=== PATIENT | female | born 1980 | race Hispanic/Latino ===

== ENCOUNTER 2016-08-06 09:51 | Outpatient (CLI) | payer BC ==
--- NOTE | 2016-08-06 11:12 | Mammography Report ---
Bilateral digital screening mammogram with tomosynthesis. CAD was used. Comparison study is dated March 26, 2015. Findings: There is a new focal rounded density in the right breast at the 12:00 position approximately 5.6 cm from the nipple. This is confirmed on tomosyntheses. There is no architectural distortion and no suspicious calcifications are seen. The fibroglandular tissue is heterogeneous. The left breast is unremarkable. Impression: Right nodular asymmetry at 12:00 position. BI-RADS code: 0. Recommendation: Targeted ultrasound.
--- NOTE | 2016-08-06 13:58 | Ultrasound Report ---
Targeted right breast ultrasound. History: Recall for right breast mass. Findings: At the 12:00 position, there is a 1.2 x 0.6 x 1.1 cm cystic mass which corresponds in size and location to the mammographic lesion. There is no acoustic shadowing. The cyst is sharply circumscribed. No solid lesions or other significant findings are seen. Impression: Right breast cyst at the 12:00 position corresponding to the mammographic density. BI-RADS code: 2. Recommendation: Routine screening schedule, ACS guidelines.
== END 2016-08-06 09:52 | disposition home or self-care (01) ==
LOC: MAMMO 09:51
PROVIDERS: ATTEND Obstetrics & Gynecology
DX: Z12.31 Encounter for screening mammogram for malignant neoplasm of breast (principal); N60.01 Solitary cyst of right breast; N63 Unspecified lump in breast
CPT/HCPCS: 76642; G0202; 77067

== ENCOUNTER 2017-09-15 10:43 | Outpatient (CLI) | payer BC ==
--- NOTE | 2017-09-16 11:41 | Ultrasound Report ---
BILATERAL DIGITAL SCREENING MAMMOGRAM with CAD and DIGITAL BREAST TOMOSYNTHESIS (DBT) and BILATERAL BREAST ULTRASOUND : 09/15/17 CLINICAL: Routine screening.The screening mammogram was reviewed and bilateral breast ultrasound was ordered based on the findings of this screening mammogram. COMPARISON:08/06/16 FINDINGS: The breasts are heterogeneously dense, which may obscure small masses. Bilateral circumscribed asymmetries are identified on the tomosynthesis views. No mass, architectural distortion or suspicious calcifications. Ultrasound of the right breast (including all four quadrants and the retroareolar area) was performed and demonstrated a benign anechoic cyst at 12 o'clock 3 cm from the nipple measuring 1.4 x 0.8 x 1.2 cm. It correlates with a previously described cyst and is slightly larger. A complex cyst versus solid nodule at 10 o'clock 4 cm from the nipple measures about 4 x 5 mm and complex cyst versus solid nodule at at 10:30 o'clock 5 cm from the nipple measures 3 x 3 x 4 mm. Ultrasound of the left breast (including all four quadrants and the retroareolar area) was performed. A benign cyst at 6 o'clock retroareolar measures 8 x 5 x 6 mm. A complex cyst versus solid nodule at 10 o'clock 3 cm from the nipple measures 5 x 4 x 4 mm. A complex cyst versus solid nodule at 1 o'clock 3 cm from the nipple measures 4 x 2 x 4 mm and a complex cyst versus solid nodule at 1 o'clock 3 cm from the nipple measures 3 x 3 x 3 mm. IMPRESSION: Bilateral benign cysts and bilateral probably benign complex cysts versus solid nodules. RECOMMENDATION: A followup bilateral breast ultrasound in three months at [facility] to reevaluate bilateral complex cysts versus solid nodules. BI-RADS CATEGORY: 3--Probably Benign COMMENT: Patient follow-up letters are generated by our [employer] application.
== END 2017-09-15 10:44 | disposition home or self-care (01) ==
LOC: MAMMO 10:43
PROVIDERS: ATTEND Internal Medicine
DX: Z12.31 Encounter for screening mammogram for malignant neoplasm of breast (principal)
CPT/HCPCS: 77063; 77067

== ENCOUNTER 2018-01-14 10:07 | Outpatient (CLI) | payer BC ==
--- NOTE | 2018-01-14 14:52 | Ultrasound Report ---
BILATERAL BREAST ULTRASOUND: 01/14/18 10:07:00 CLINICAL: Followup complex cyst versus solid masses. COMPARISON: 09/15/17 FINDINGS: Targeted ultrasound of the right breast was performed and demonstrated three benign anechoic cysts and no solid masses. A cyst at 10 o'clock 4 cm from the nipple measures 9 x 8 x 6 mm, a cyst at 10:30 o'clock 5 cm from the nipple measures 5 x 3 x 2 mm and a cyst at 12 o'clock 3 cm from the nipple measures 5 x 3 x 3 mm. The cyst at 10 o'clock is slightly larger compared to the prior exam and the cyst at 12 o'clock is slightly smaller. The cyst at 10:30 o'clock is unchanged. Targeted ultrasound of the left breast demonstrated a benign anechoic cyst at 1 o'clock 3 cm from the nipple measuring 3 x 3 x 2 mm and a second cyst at 1 o'clock 3 cm from the nipple measuring 6 x 4 x 4 mm. Both of these are unchanged in size but are more anechoic than on the prior exam. A retroareolar cyst at 6 o'clock measures 1.1 x 0.6 x 0.8 cm. It is slightly larger but is completely anechoic. A slightly irregular relatively anechoic lesion at 10 o'clock 3 cm from the nipple measures 4 x 3 x 3 mm. It demonstrates questionable shadowing. IMPRESSION: All of the previous described cysts with internal echoes have become anechoic. Only the anechoic lesion at 10 o'clock 3 cm from the nipple warrants followup because of its lack of posterior enhancement. BI-RADS 3 - - Probably Benign RECOMMENDATION: An additional short-term followup ultrasound of the left breast in three months to reevaluate the probable left cyst at 10 o'clock 3 cm from the nipple. Recommend routine screening of the right breast.
== END 2018-01-14 10:08 | disposition home or self-care (01) ==
LOC: SPVWC 10:07
PROVIDERS: ATTEND Internal Medicine
DX: N60.02 Solitary cyst of left breast (principal); N60.01 Solitary cyst of right breast; Z90.49 Acquired absence of other specified parts of digestive tract; Z90.710 Acquired absence of both cervix and uterus; Z90.721 Acquired absence of ovaries, unilateral

== ENCOUNTER 2018-06-21 12:41 | Emergency (ER) | payer BC ==
--- NOTE | 2018-06-21 12:53 | Emergency Department Report ---
ED Chest Pain HPI - General Stated Complaint: CHEST PAIN Time Seen by Provider: 06/21/18 12:47 - History of Present Illness Initial Comments: 38-year-old female, who is a OR Tech here at [employer], presents to the emergency department from at work upstairs with complaint of some right-sided chest pain/pressure and some diaphoresis that started just prior to arrival. The patient was going into an operating room to assist when she mentioned that her chest felt "weird." She says that some of the anesthesiologists evaluated her and felt that she might have an irregular heart rate based on feeling her pulse. The patient had a blood pressure of systolic 120-130 which she says is high for her pressure usually runs at about a systolic of 90. I was called by the shank stitcher on-call, Dr. Milan, gave a heads up that this patient was coming down to be checked out and suggested some basic cardiac blood work be done. The patient does not have any past medical history. She does not use tobacco or any illicit drug use. She did not take anything for her symptoms prior to arrival in the emergency department. - Related Data Home Medications Medication Instructions Recorded Confirmed Last Taken No Known Home Medications [No 01/11/14 01/11/14 Unknown Reported Home Medications] Allergies Allergy/AdvReac Type Severity Reaction Status Date / Time amoxicillin trihydrate Allergy Rash Verified 12/31/13 10:35 [From Augmentin] clarithromycin [From Biaxin] Allergy Rash Verified 12/31/13 10:39 latex Allergy Rash Verified 12/31/13 10:35 potassium clavulanate Allergy Rash Verified 12/31/13 10:35 [From Augmentin] FLU VACINE Allergy Rash Uncoded 09/15/17 10:44 Heart Score - HEART Score History: Slightly suspicious EKG: Normal Age: < 45 Risk factors: No known risk factors Troponin: < normal limit HEART Score: 0 - Critical Actions Critical Actions: 0-3 pts:0.9-1.7%risk of adverse cardiac event.Candidate for discharge ED Review of Systems ROS: Stated complaint: CHEST PAIN Other details as noted in HPI Comment: All other systems reviewed and negative Constitutional: diaphoresis. denies: fever Eyes: denies: eye pain, vision change ENT: denies: ear pain, throat pain Respiratory: denies: cough, shortness of breath Cardiovascular: chest pain. denies: palpitations Gastrointestinal: denies: abdominal pain, vomiting Genitourinary: denies: urgency, dysuria Musculoskeletal: denies: back pain, arthralgia Skin: denies: rash, lesions Neurological: denies: headache, weakness ED Past Medical Hx - Past Medical History Hx Asthma: No Hx COPD: No - Surgical History Hx Appendectomy: Yes Additional Surgical History: hysterectomy - Social History Smoking Status: Never Smoker - Medications Home Medications: Home Medications Medication Instructions Recorded Confirmed Last Taken Type No Known Home Medications [No 01/11/14 01/11/14 Unknown History Reported Home Medications] ED Physical Exam - Other Other exam information: GENERAL: The patient is well-developed well-nourished. HEENT: Normocephalic. Atraumatic. Patient has moist mucous membranes. EYES: Extraocular motions are intact. NECK: Supple. Trachea is midline. CHEST/LUNGS: Clear to auscultation. There is no respiratory distress noted. HEART/CARDIOVASCULAR: Regular. There is no tachycardia. There is no obvious murmur. ABDOMEN: Abdomen is soft, nontender. Patient has normal bowel sounds. There is no abdominal distention. SKIN: Skin is warm and dry. NEURO: The patient is awake, alert, and oriented. The patient is cooperative. The patient has no focal neurologic deficits. The patient has normal speech. MUSCULOSKELETAL: There is no tenderness or deformity. There is no evidence of acute injury. ED Course Vital Signs 06/21/18 06/21/18 06/21/18 12:42 12:45 13:00 Temperature Pulse Rate 91 H 86 Respiratory 14 14 Rate Blood Pressure 116/70 O2 Sat by Pulse 99 100 99 Oximetry 06/21/18 06/21/18 06/21/18 13:03 13:15 13:30 Temperature 98.8 F Pulse Rate 80 83 77 Respiratory 11 L 10 L 17 Rate Blood Pressure 116/70 108/42 108/48 O2 Sat by Pulse 100 100 99 Oximetry 06/21/18 06/21/18 06/21/18 13:45 14:00 14:15 Temperature Pulse Rate 78 79 80 Respiratory 11 L 13 12 Rate Blood Pressure 108/74 110/67 106/55 O2 Sat by Pulse 99 100 99 Oximetry 06/21/18 06/21/18 06/21/18 14:30 14:45 15:00 Temperature Pulse Rate 81 82 83 Respiratory 15 11 L 10 L Rate Blood Pressure 122/47 118/70 118/70 O2 Sat by Pulse 98 100 98 Oximetry 06/21/18 15:15 Temperature Pulse Rate 79 Respiratory 14 Rate Blood Pressure 119/65 O2 Sat by Pulse 97 Oximetry - Consultations Consultation #1: The shank stitcher chief compressor station engineer, Dr Milan, had already called me to let me know that this patient was coming to see us in the emergency department from the operating room. I later spoke with him regarding the patient's negative workup thus far and we discussed the EKG and chest x-ray results. Dr Milan agrees that the patient appears safe for discharge home at this time and they will see her in the office for further evaluation and possible stress test and/or echocardiogram. 06/21/18 16:44 CASA score - Casa Score Age > 65: (0) No Aspirin use within the Past 7 Days: (0) No 3 or more CAD Risk Factors: (0) No 2 or more Angina events in past 24 hrs: (0) No Known CAD with more than 50% Stenosis: (0) No Elevated Cardiac Markers: (0) No ST Deviation Greater than 0.5mm: (0) No CASA Score: 0 ED Medical Decision Making - Lab Data Result diagrams: 06/21/18 12:59 06/21/18 12:59 - EKG Data -: EKG Interpreted by Me EKG shows normal: sinus rhythm, axis (left axis deviation), intervals, QRS complexes, ST-T waves Rate: normal - EKG Data When compared to previous EKG there are: previous EKG unavailable Interpretation: normal EKG - Radiology Data Radiology results: image reviewed interpreted by me: Chest x-ray does not show any pneumothorax, pleural effusion, pneumonia or obvious focal consolidation. - Medical Decision Making This patient presented to the emergency department from upstairs in the [employer] room, where she works, with some right-sided chest pain. The patient has no risk factors for coronary artery disease. EKG did not show any morphology consistent with any ST elevation NE, ischemia or dysrhythmia. Heart and lungs sounds are normal to auscultation. Chest x-ray did not show any pneumonia, focal consolidation, pneumothorax, pleural effusions, or any other acute process. Her labs have been unremarkable including negative troponins 2. I've been in contact with the shank stitcher who agrees that the patient appears safe for discharge home and they will see the patient in the outpatient setting for further workup. However the patient will return to the emergency department wi th any return of her chest pain, or with any acute distress. Vital signs stable throughout her ED course. - Differential Diagnosis costochondritis, GERD, vasovagal, pneumonia, NE Critical Care Time: No Critical care attestation.: If time is entered above; I have spent that time in minutes in the direct care of this critically ill patient, excluding procedure time. ED Disposition Clinical Impression: Atypical chest pain Disposition: DC-01 TO HOME OR SELFCARE Is pt being admited?: No Condition: Stable Instructions: Chest Pain (ED) Additional Instructions: Please follow-up with your primary care physician. Please call the shank stitcher and make an appointment as soon as possible for an outpatient stress test or cardiac evaluation. Return to the emergency department immediately with any return of your chest pain or with any acute distress. Referrals: SHANNON MARQUEZ MD [Primary Care Provider] - 2-3 Days DAVONTE MILAN MD [Staff Physician] - 2-3 Days Time of Disposition: 16:43
--- NOTE | 2018-06-21 13:10 | XRay Report ---
AP CHEST: HISTORY: chest pain AP view of the chest demonstrates a normal mediastinal and cardiac contour with clear lungs and normal bony and soft tissue structures. IMPRESSION: Unremarkable AP chest.
[2018-06-21] MEDS ORDERED: BABY ASPIRIN PO ONE (13:13)
[2018-06-21 13:14] LABS: Basophils % (Auto) 0.8 % (0.0-1.8); Eosinophils % (Auto) 0.4 % (0.0-4.3); Hematocrit 41.6 % (30.3-42.9); Hemoglobin 14.2 gm/dl (10.1-14.3); Lymphocytes % (Auto) 35.2 % (13.4-35.0); Mean Corpuscular HGB Conc 34 % (30-34); Mean Corpuscular Volume 88 fl (79-97); Monocytes # (Auto) 0.5 K/mm3 (0.0-0.8); Monocytes % (Auto) 8.1 % (0.0-7.3); Platelet Count 264 K/mm3 (140-440); Red Blood Count 4.72 M/mm3 (3.65-5.03); Red Cell Distribution Width 13.1 % (13.2-15.2)
[2018-06-21 13:36] LABS: Alanine Aminotransferase 12 units/L (7-56); Albumin 4.4 g/dL (3.9-5); BUN/Creatinine Ratio 15; Blood Urea Nitrogen 12 mg/dL (7-17); Calcium 9.1 mg/dL (8.4-10.2); Hemolysis Index 12
[2018-06-21 15:21] VITALS: BP 119/65
== END 2018-06-21 17:04 | disposition home or self-care (01) ==
LOC: ED 12:41
DX: R07.89 Other chest pain (principal); Z90.710 Acquired absence of both cervix and uterus; Z88.1 Allergy status to other antibiotic agents; Z88.8 Allergy status to other drugs, medicaments and biological substances; Z88.7 Allergy status to serum and vaccine; Z91.040 Latex allergy status
CPT/HCPCS: 36415; 71045; 80053; 84484; 84703; 85025; 93005; 93010

== ENCOUNTER 2018-06-29 15:54 | Outpatient (CLI) | payer BC ==
--- NOTE | 2018-06-29 19:50 | XRay Report ---
FINAL REPORT EXAM: XR SPINE CERVICAL 2-3V HISTORY: RADICULOPATHY TECHNIQUE: 3 views of the cervical spine PRIORS: None. FINDINGS: The vertebral bodies are normal in height. Vertebral alignment is normal. The disc spaces are well pr eserved. There is no evidence of fracture or subluxation. The soft tissues are unremarkable. IMPRESSION: Normal C-spine series.
== END 2018-06-29 15:55 | disposition home or self-care (01) ==
LOC: XRAY 15:54
PROVIDERS: ATTEND Internal Medicine Cardiovascular Disease
DX: M54.13 Radiculopathy, cervicothoracic region (principal); Z90.49 Acquired absence of other specified parts of digestive tract; Z90.710 Acquired absence of both cervix and uterus; Z90.721 Acquired absence of ovaries, unilateral
CPT/HCPCS: 72040

== ENCOUNTER 2019-06-30 08:36 | Day surgery (SDC) | payer BC ==
[2019-06-30] MEDS ORDERED: NITROGLYCERIN 0.4 MG TAB SUBL SL ONE (10:13)
[2019-06-30] MEDS ORDERED: ATROPINE 0.1% (1 MG/10 ML) CARDIAC SYRINGE ONE (10:18)
[2019-06-30 10:22] LABS: Blood Urea Nitrogen 9 mg/dL (7-17)
[2019-06-30] MEDS ORDERED: ATROPINE 1 MG/ML VIAL IV ONE (10:30)
[2019-06-30] MEDS ORDERED: METOPROLOL TARTRATE 5 MG/5 ML INJ IV ONE (10:30)
[2019-06-30 11:09] LABS: BUN/Creatinine Ratio 11; Blood Urea Nitrogen 9 mg/dL (7-17); Calcium 9.3 mg/dL (8.4-10.2); Hemolysis Index 10
[2019-06-30 11:26] VITALS: BP 100/51
--- NOTE | 2019-06-30 13:06 | Cat Scan Report ---
LIMITED CTA CHEST Indication: Limited evaluation of the chest associated with cardiac CTA exam. Technique: Arterial phase technique utilized to evaluate the carotid arteries. Please refer to the of ficial cardiac CTA report for contrast details. All CT scans at this location are performed using CT dose reduction for ALARA by means of automated exposure control. Findings: No pathologic adenopathy. Visualized lungs are clear. There are degenerative changes in the spine with no acute osseous abnormality. Limited imaging through the upper abdomen shows nothing acute. Impression: No significant incidental finding. Signer Name: Brennen Carter Jr, MD Signed: 06/30/2019 1:01 PM Workstation Name: [id number]
--- NOTE | 2019-07-10 10:53 | CT Calcium Scoring Report ---
Coronary Calcium Score Date of service: 07/10/19 Procedure: High-resolution computed tomographic imaging of the chest was performed on06/30/19 with particular attention paid to the coronary arteries. Images from the examination were analyzed for the presence and extent of coronary artery calcification, using coronary calcium quantification software. The patient tolerated the procedure well and there were no complications. The results of the coronary calcification analysis are provided below. The patient scores are compared with published data related to scores for people of a similar age and the same gender. - Findings Total Agatson Score: 0 Findings: cardiac cta Procedure: the patient was brought to the ct laboratory at [facility] in stable condition after a [address] angiography was performed on the 64 slice scanner using the standard protocol. heart was regulated by beta blockade. sublingual ngt was administered prior to imaging. a coronary calcium score was performed by the agatston method. a separate radiology assessment of the non cardaic structures in the field of view will be provided. 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 there were no procedural complications
== END 2019-06-30 08:37 | disposition home or self-care (01) ==
LOC: CATHLABREC 08:36 → EDSTATUS 09:45
PROVIDERS: ATTEND Internal Medicine
DX: R07.9 Chest pain, unspecified (principal)
CPT/HCPCS: 36415; 75574; 80048; 82565; 84520; J0461; Q9967

== ENCOUNTER 2020-03-06 14:27 | Outpatient (CLI) | payer BC, OTHER ==
--- NOTE | 2020-03-06 15:33 | Magnetic Resonance Report ---
MRI ABDOMEN WITHOUT AND WITH CONTRAST INDICATION / CLINICAL INFORMATION: ABD PAIN. TECHNIQUE: Multiplanar, multisequence series were obtained through the abdomen. Postcontrast dynamic imaging fol lowing 17 cc of IV gadolinium. Thin slab and radial MRCP images. COMPARISON: No relevant comparison at this facility FINDINGS: LIVER: No significant abnormality. GALLBLADDER: No significant abnormality. BILE DUCTS: No significant abnormality. The common bile duct measures 3 mm on the MRCP images. No mily ling defect or stricture. PANCREAS: No significant abnormality. Normal pancreatic duct on MRCP. SPLEEN: No significant abnormality. ADRENALS: No significant abnormality. RIGHT KIDNEY AND URETER: No significant abnormality. LEFT KIDNEY AND URETER: No significant abnormality. STOMACH AND VISUALIZED BOWEL: No significant abnormality. PERITONEUM: No free fluid. No free air. No fluid collection. LYMPH NODES: No adenopathy. AORTA and ARTERIES: No significant abnormality. IVC and VEINS: No significant abnormality. ADDITIONAL FINDINGS: None. SKELETAL SYSTEM: No significant abnormality. IMPRESSION: Normal MR abdomen with and without contrast. Normal MRCP. Signer Name: Brennen Carter Jr, MD Signed: 03/06/2020 3:28 PM Workstation Name: [id number]
== END 2020-03-06 14:28 | disposition home or self-care (01) ==
LOC: MRI 14:27
PROVIDERS: ATTEND Internal Medicine
DX: R10.9 Unspecified abdominal pain (principal)
CPT/HCPCS: 74183; A9577

== ENCOUNTER 2020-06-25 12:37 | Outpatient (CLI) | payer BC ==
--- NOTE | 2020-06-26 08:01 | Mammography Report ---
BILATERAL DIGITAL SCREENING MAMMOGRAM WITH CAD HISTORY: Screening mammogram, patient reports (on the screening mammogram questionnaire) a right barbara st lump which she states has increased in size. TECHNIQUE: Routine digital mammographic imaging performed. This examination was interpreted with armando johnson benefit of Computer-aided Detection analysis. COMPARISON: 01/14/2018, 09/15/2017, 08/06/2016. FINDINGS: Breast Density: heterogeneously dense breast parenchymal pattern which somewhat lessens the sensitivi ty of the evaluation. Digital CC and MLO views demonstrate increased size of a right upper outer breast partially obscured round lesion, possibly a cyst. This may correspond with the reported palpable finding. A targeted ul trasound is recommended for further evaluation. A partially obscured oval lesion in the left upper in ner breast is also noted, likely corresponding with a suspected probably benign 10:00 cyst noted prev iously. IMPRESSION: Increased size of right upper outer breast partially obscured round lesion. A targeted ultrasound is recommended for further evaluation. Additionally, the patient reports increasing size of a right barbara st palpable finding for which a targeted ultrasound is recommended. Patient is due for follow-up evaluation of a previously noted left breast cyst lesion at the 10:00 po sition. A targeted left breast ultrasound is recommended. BIRADS 0-Incomplete: Needs additional imaging evaluation NOTE: WE WILL RECALL THE PATIENT FOR THIS ADDITIONAL EVALUATION. FURTHER INFORMATION: According to the [employer], yearly mammograms are recommend ed starting at age 40 and continuing as long as a woman is in good health. Clinical Breast Exams shou ld be part of a periodic health exam-about every 3 years for women in their 20s and 30s and every yea r for women 40 and over. Breast self exam is an option for women starting in their 20s. Any breast ch marilu noted on a breast self exam should be reported promptly to the patient's healthcare provider. Br east MRI is recommended for women with an approximately 20-25% or greater lifetime risk of breast can cer, including women with a strong family history of breast or ovarian cancer and women who have been treated for Hodgkin's disease. A negative Mammography report should not discourage follow up or biopsy of a clinically significant f inding and/or abnormality. Dense breast tissue may obscure small neoplasms. The patient will be entered into a reminder system with a target due date for the next screening mamm ogram. A Signer Name: Shlomo Frazier MD Signed: 06/26/2020 7:56 AM Workstation Name: [id number]
== END 2020-06-25 12:38 | disposition home or self-care (01) ==
LOC: MAMMO 12:37
PROVIDERS: ATTEND Internal Medicine
DX: Z12.31 Encounter for screening mammogram for malignant neoplasm of breast (principal)
CPT/HCPCS: 77067

== ENCOUNTER 2020-06-27 13:10 | Outpatient (CLI) | payer BC ==
[2020-06-27 13:37] LABS: Basophils # (Auto) 0.1 K/mm3 (0.0-0.1); Basophils % (Auto) 0.7 % (0.0-1.8); Eosinophils % (Auto) 0.2 % (0.0-4.3); Hematocrit 40.1 % (30.3-42.9); Hemoglobin 13.7 gm/dl (10.1-14.3); Lymphocytes # (Auto) 2.2 K/mm3 (1.2-5.4); Lymphocytes % (Auto) 26.4 % (13.4-35.0); Mean Corpuscular HGB Conc 34 % (30-34); Mean Corpuscular Volume 89 fl (79-97); Monocytes # (Auto) 0.7 K/mm3 (0.0-0.8); Monocytes % (Auto) 8.6 % (0.0-7.3); Platelet Count 303 K/mm3 (140-440); Red Blood Count 4.51 M/mm3 (3.65-5.03); Red Cell Distribution Width 13.3 % (13.2-15.2)
[2020-06-27 15:14] LABS: Alanine Aminotransferase 20 units/L (7-56); Albumin 4.6 g/dL (3.9-5); Blood Urea Nitrogen 10 mg/dL (7-17); Calcium 9.3 mg/dL (8.4-10.2); Chol/HDL Ratio 2.82 %; HDL Cholesterol 52 mg/dL (40-59); Hemolysis Index 8; LDL Cholesterol,Direct 96 mg/dL (50-130)
[2020-06-27 15:27] LABS: BUN/Creatinine Ratio 14
--- NOTE | 2020-06-28 12:51 | Ultrasound Report ---
ULTRASOUND BREAST BILATERAL LIMITED, 06/27/2020 CLINICAL INFORMATION / INDICATION: Recent abnormal right screening mammogram as well as right palpabl e lump. Patient was also due for follow-up left breast ultrasound.. TECHNIQUE: Targeted ultrasound evaluation was performed of the area of interest. COMPARISON: Recent screening mammogram 06/25/2020 and prior breast ultrasound 09/15/2017 FINDINGS: Right breast: There is a large simple cyst in the right breast at 9-10:00, 6 cm from the nipple measu ring 2.5 x 1.8 cm. This accounts for the abnormal finding on recent right mammogram aswell as the pal pable lump described by the patient. There is an additional simple cyst in the right breast at 9:00, 4 cm from the nipple, measuring 7 mm. Left breast: There are a few small scattered cysts throughout the superior and upper outer quadrant o f the left breast. No cysts greater than 1 cm. No solid masses identified. No solid masses or complex cyst identified at this time. IMPRESSION: No sonographic evidence of malignancy. Bilateral cysts as described above. Follow up recommendation: Routine yearly BI-RADS Category 2: Benign. A normal or "negative" report should not preclude biopsy or follow-up of a clinically suspicious find ing. Signer Name: Clair Ayala MD Signed: 06/28/2020 12:47 PM Workstation Name: [email or web address]
== END 2020-06-27 13:11 | disposition home or self-care (01) ==
LOC: LAB 13:10
PROVIDERS: ATTEND Nurse Practitioner Family
DX: Z00.00 Encounter for general adult medical examination without abnormal findings (principal); Z01.419 Encounter for gynecological examination (general) (routine) without abnormal findings; N60.01 Solitary cyst of right breast; E55.9 Vitamin D deficiency, unspecified; R92.8 Other abnormal and inconclusive findings on diagnostic imaging of breast
CPT/HCPCS: 36415; 80053; 80061; 82306; 84443; 85025

== ENCOUNTER 2021-02-07 11:15 | Outpatient (CLI) | payer BC | END 2021-02-07 11:16 | disposition home or self-care (01) | LOC: LAB 11:15 | PROVIDERS: ATTEND Nurse Practitioner Family | DX: R79.89 Other specified abnormal findings of blood chemistry (principal) | CPT/HCPCS: 36415; 84439; 84443; 84480 ==

== ENCOUNTER 2021-07-25 12:59 | Outpatient (CLI) | payer BC ==
--- NOTE | 2021-07-25 13:52 | Cat Scan Report ---
CTA CHEST WITH CONTRAST INDICATION : PLEURITIC CHEST PAIN OMNI 350 100 ML. Left chest pain. TECHNIQUE: Axial imaging performed through the chest, with contrast bolus timing set to maximize opa cification of the pulmonary arteries. Sagittal and coronal reformatted images. 3-plane MIP reformatte d images were obtained. All CT scans at this location are performed using CT dose reduction for ALAR A by means of automated exposure control. Omnipaque 350 100 mL of intravenous contrast administered. COMPARISON: None FINDINGS: Bolus: Contrast bolus timing is adequate. PTE: No filling defect is present to suggest PTE. Mediastinum: Heart and great vessels appear normal. No significant coronary artery calcifications. T he thyroid gland, tracheobronchial tree and esophagus are unremarkable. No pathologic mediastinal robi nopathy. Lungs: Minimal subpleural atelectatic changes are identified in the posterior right lower lobe. Othe rwise, the lungs are clear with no evidence for parenchymal lung disease. No pleural effusion or pneu mothorax. Bones: Minimal degenerative changes in the thoracic spine. No fracture or suspicious bony lesion. Upper abdomen: Limited imaging of the upper abdomen shows nothing acute. IMPRESSION: Negative for PTE. Clear lungs. Signer Name: Brennen Carter Jr, MD Signed: 07/25/2021 1:48 PM Workstation Name: [id number]
== END 2021-07-25 13:00 | disposition home or self-care (01) ==
LOC: CT 12:59
PROVIDERS: ATTEND Internal Medicine Cardiovascular Disease
DX: J98.11 Atelectasis (principal); M47.814 Spondylosis without myelopathy or radiculopathy, thoracic region
CPT/HCPCS: 71275; Q9967

== ENCOUNTER 2021-07-29 07:12 | Outpatient (CLI) | payer BC ==
--- NOTE | 2021-07-29 10:06 | Treadmill Report ---
DATE OF SERVICE: 07/29/2021 EXERCISE STRESS REPORT REASON FOR TEST: Chest pain. DESCRIPTION OF PROCEDURE: The patient exercised for 11 minutes of a Alex protocol, reaching stage 4 and achieving 12 METs. Peak heart rate was 176 beats per minute. Peak blood pressure was 140 systolic. There was no chest pain. Test was stopped for fatigue. Baseline ECG was sinus rhythm. With exercise, there were no ST changes of ischemia. No significant dysrhythmias were noted. CONCLUSION: 1. Very good exercise capacity. 2. No chest pain with exercise. 3. No ST changes of ischemia. 4. No significant dysrhythmias. 5. Normal exercise ECG test. TID: [id number] RECEIPT: [id number] [facility]
== END 2021-07-29 07:13 | disposition home or self-care (01) ==
LOC: ECHO 07:12
PROVIDERS: ATTEND Internal Medicine Cardiovascular Disease
DX: I08.8 Other rheumatic multiple valve diseases (principal)
CPT/HCPCS: 93017; C8929; 93306

== ENCOUNTER 2021-08-15 12:13 | Outpatient (CLI) | payer BC ==
[2021-08-15 12:57] LABS: Basophils # (Auto) 0.1 K/mm3 (0.0-0.1); Basophils % (Auto) 0.9 % (0.0-1.8); Eosinophils % (Auto) 0.4 % (0.0-4.3); Hematocrit 40.6 % (30.3-42.9); Hemoglobin 14.2 gm/dl (10.1-14.3); Lymphocytes # (Auto) 1.8 K/mm3 (1.2-5.4); Lymphocytes % (Auto) 27.8 % (13.4-35.0); Mean Corpuscular HGB Conc 35 % (30-34); Mean Corpuscular Volume 88 fl (79-97); Monocytes # (Auto) 0.7 K/mm3 (0.0-0.8); Monocytes % (Auto) 10.6 % (0.0-7.3); Platelet Count 304 K/mm3 (140-440); Red Cell Distribution Width 13.1 % (13.2-15.2)
[2021-08-15 13:04] LABS: Alanine Aminotransferase 21 units/L (7-56); Albumin 4.9 g/dL (3.9-5); Blood Urea Nitrogen 11 mg/dL (7-17); Calcium 9.6 mg/dL (8.4-10.2); Chol/HDL Ratio 3.15 %; HDL Cholesterol 57 mg/dL (40-59); Hemolysis Index 13; LDL Cholesterol,Direct 112 mg/dL (50-130)
[2021-08-15 13:07] LABS: BUN/Creatinine Ratio 16
--- NOTE | 2021-08-15 15:40 | Mammography Report ---
DEXA BONE DENSITY SCAN INDICATION / CLINICAL INFORMATION: Z78. 41 years Female COMPARISON: None available. LUMBAR SPINE, L1-L4: - Bone mineral density (BMD) = 1.228 g/cm2. - T-score = 1.6 - Change (%) since most recent prior (if available): None available. LEFT HIP, TOTAL : - Bone mineral density (BMD) = 1.135 g/cm2. - T-score = 1.6 - Change (%) since most recent prior (if available): None available. IMPRESSION: 1. WHO Classification: Normal bone density. Fracture Risk: Not Increased. 2. 10-Year Fracture Risk (FRAX) = Major Osteoporotic Not reported.% / Hip: Not reported.% FRAX generally not reported for patients with normal or osteoporotic BMD, in guu-lwnlvvb-xhfutzu shanda ents younger than age 50, or in patients undergoing pharmacotherapy BMD Reporting Guidelines (ISCD, 2015) BMD Reporting in Postmenopausal Women and in Men Age 50 and Older - T-scores are preferred. - The WHO densitometric classification is applicable. BMD Reporting in Females Prior to Menopause and in Males Younger Than Age 50 - Z-scores, not T-scores, are preferred. This is particularly important in children. - A Z-score of -2.0 or lower is defined as below the expected range for age, and a Z-score above -2.0 is within the expected range for age. - Osteoporosis cannot be diagnosed in men under age 50 on the basis of BMD alone. - The WHO diagnostic criteria may be applied to women in the menopausal transition. http://www.iscd.org/official-positions/0550-zzvs-gowbpcwn-positions-adult/ Signer Name: Bo Huynh MD Signed: 08/15/2021 3:35 PM Workstation Name: [id number]
--- NOTE | 2021-08-18 15:31 | Mammography Report ---
DIGITAL SCREENING MAMMOGRAM WITH CAD, 08/15/2021 CLINICAL INFORMATION / INDICATION: Routine screening TECHNIQUE: Digital bilateral 2D mammography was obtained in the craniocaudal and mediolateral obliqu e projections. This examination was interpreted with the benefit of Computer-Aided Detection analysis . COMPARISON: 06/25/2020 FINDINGS: Breast Density: The breasts are heterogeneously dense, which may obscure small masses. No dominant mass, suspicious calcifications, or architectural distortion in either breast. Bilateral benign-appearing changing nodularity is again seen. IMPRESSION: No mammographic evidence of malignancy. Follow up recommendation: Routine yearly BI-RADS Category 2: BENIGN. A "normal" or negative report should not discourage follow up or biopsy of a clinically significant f inding. A written summary of these findings will be mailed to the patient. The patient will be entered into a mammography reporting system which will generate a reminder letter for the patient's next appointmen t at the appropriate interval. The [employer] recommends yearly mammograms starting at age 40 and continuing as l sanjana as a woman is in good health. Breast MRI is recommended for women with an approximate 20-25% or greater lifetime risk of breast cancer, including women with a strong family history of breast or ova fabian cancer or who have been treated for Hodgkin's disease. Signer Name: Jarad Kyle MD Signed: 08/18/2021 3:27 PM Workstation Name: [id number]
== END 2021-08-15 12:14 | disposition home or self-care (01) ==
LOC: MAMMO 12:13
PROVIDERS: ATTEND Internal Medicine
DX: Z12.31 Encounter for screening mammogram for malignant neoplasm of breast (principal); Z00.00 Encounter for general adult medical examination without abnormal findings; Z78.0 Asymptomatic menopausal state
CPT/HCPCS: 36415; 77067; 77080; 80053; 80061; 82670; 83001; 84443; 85025

== ENCOUNTER 2021-10-07 07:32 | Day surgery (SDC) | payer BC ==
[2021-10-07] MEDS ORDERED: IBUPROFEN 800 MG TAB PO ONE (12:00)
[2021-10-07] MEDS ORDERED: IBUPROFEN 800 MG TAB ONE (12:55)
[2021-10-07] MEDS ORDERED: BUPIVACAINE/PF (0.5%) 5 MG/1 ML 30 ML VIAL INFILTRATI ONE ×2 (13:37→14:02)
[2021-10-07] MEDS ORDERED: LIDOCAINE (1%) 10 MG/1 ML VIAL 20 ML MDV ONE (13:37)
[2021-10-07] MEDS ORDERED: SODIUM CHLORIDE 0.9% IRR 1,500 ML BOTTLE IR ONE (14:00)
[2021-10-07] MEDS ORDERED: LIDOCAINE (1%) 10 MG/1 ML VIAL 20 ML MDV INFILTRATI ONE (14:03)
[2021-10-07 14:13] VITALS: BP 119/80
--- NOTE | 2021-10-07 14:37 | Procedure Note ---
Date of procedure: 10/07/21 Pre-op diagnosis: Soft tissue mass right upper abdominal wall Post-op diagnosis: same Procedure: Excision of soft tissue mass right upper abdominal wall Findings: Patient identified in preoperative area and operative site palpated and marked. The patient was taken back to the minor procedure room and positioned in right lateral decubitus position. The right upper abdomen was prepped and draped in usual sterile fashion a timeout performed. Local anesthetic was infiltrated into the skin and subcutaneous tissue at the intended incision site. A transverse incision was made over the area of the palpable mass using a 15 blad e. Dissection was carried down through skin and subcutaneous tissue using hemostat. The mass was palpated and visually identified. This was grasped with an Allis and dissected free from the surrounding tissue using a combination of blunt dissection and electrocautery. The mass appeared fatty and was slightly more firm than the surrounding normal fat. This measured approximately 2.5 cm. The soft tissue mass was passed off the table as a specimen. The wound was then irrigated and hemostasis very carefully ensured. Additional local anesthetic was infiltrated into the skin and subcutaneous. All wound was then closed in layered fashion. The deep dermal layer was approximated using 3- 0 Vicryl interrupted stitches. The skin was approximated using 4-0 Monocryl subcuticular running stitch and skin glue. The patient tolerated the procedure well. All sharps, sponge, instrument counts are correct x2. The patient was discharged home in stable condition. Anesthesia: local Surgeon: DEREJE HERRON Estimated blood loss: minimal Pathology: list (Soft tissue mass right upper abdominal wall) Specimen disposition: to lab Condition: stable Disposition: other (HOME)
== END 2021-10-07 07:33 | disposition home or self-care (01) ==
LOC: OR 07:32
PROVIDERS: ATTEND Surgery
DX: R19.09 Other intra-abdominal and pelvic swelling, mass and lump (principal); D17.5 Benign lipomatous neoplasm of intra-abdominal organs; K92.1 Melena; Z88.6 Allergy status to analgesic agent; Z88.8 Allergy status to other drugs, medicaments and biological substances; Z91.040 Latex allergy status; Z98.890 Other specified postprocedural states; Z90.710 Acquired absence of both cervix and uterus; Z90.722 Acquired absence of ovaries, bilateral
CPT/HCPCS: 22902; 88307; J3490; 88304